=== PATIENT | female | born 1995 | race African-American/Black ===

== ENCOUNTER 2018-07-02 11:53 | Inpatient (IN) ==
[2018-07-02] MEDS ORDERED: Ringers Solution, Lactated 2,000 ML ONE (14:13)
[2018-07-02] MEDS ORDERED: Oxytocin 20 units/ LR 1000 mL 20 UNIT/1,000 ML BAG IVC ONE (14:14)
[2018-07-02] MEDS ORDERED: Naloxone 0.4 MG/ML INJ IVP PRN (14:22)
[2018-07-02] MEDS ORDERED: Metoclopramide 10 MG/2 ML VIAL IVP PRN (14:22)
[2018-07-02] MEDS ORDERED: Famotidine 20 MG/2 ML VIAL IVP PRN (14:22)
[2018-07-02] MEDS ORDERED: Ondansetron 4 MG/2 ML VIAL IVP PRN (14:22)
[2018-07-02] MEDS ORDERED: *HR* Nalbuphine 10 MG/ML AMPUL IVP PRN (14:22)
[2018-07-02] MEDS ORDERED: Oxytocin 20 units/ LR 1000 mL 20 UNIT/1,000 ML BAG IVC SCH ×2 (14:30→20:20)
[2018-07-02] MEDS ORDERED: Ringers Solution, Lactated 1,000 ML IVC SCH (14:30)
[2018-07-02] MEDS ORDERED: *HR* FentaNYL (PF) 100 MCG/2 ML VIAL EP ONE (14:33)
[2018-07-02] MEDS ORDERED: Bupivacaine-MPF 0.25% 10 ML VIAL EP ONE (14:33)
[2018-07-02] MEDS ORDERED: *HR* FentaNYL (PF) 100 MCG/2 ML VIAL ONE (14:36)
[2018-07-02] MEDS ORDERED: Bupivacaine-MPF 0.25% 10 ML VIAL ONE (14:36)
[2018-07-02] MEDS ORDERED: Lidocaine -MPF 1% 5 ML AMPUL ONE (14:36)
[2018-07-02] MEDS ORDERED: Epidural Premix (fent/bupiv) 110 ML EP ONE (14:39)
[2018-07-02 14:43] LABS: Basophils % 0.4 %; Eosinophils % 0.3 %; Hematocrit 39.4 % (35.3-44.9); Hemoglobin 14.2 g/dL (11.5-15.4); Immature Granulocytes % 0.6 % (0-4); Lymphocytes # 1.6 K/mcL (0.6-4.6); Mean Corpuscular Hemoglobin 33.7 pg (28.0-33.3); Mean Corpuscular Volume 93.6 fL (83.0-100.0); Mean Platelet Volume 10.4 fL (9.4-12.4); Monocytes # 0.5 K/mcL (0.0-1.3); Monocytes % 4.8 %; Neutrophils # 8.5 K/mcL (1.6-8.9); Platelet Count 279 K/mcL (140-400); Red Blood Count 4.21 M/mcL (3.82-4.97); Red Cell Distribution Width 12.1 % (11.5-14.5); Segmented Neutrophils % 78.9 %
[2018-07-02] MEDS ORDERED: Epidural Premix (fent/bupiv) 110 ML EP SCH (14:45)
--- NOTE | 2018-07-02 14:45 | OB/GYN History & Physical ---
Date of Encounter: 07/02/18 Time of Encounter: 14:44 Assessment and Plan (1) 38 weeks gestation of Current visit: Yes Status: Acute Patient in active labor. Expectant management. History of Present Illness Chief complaint: labor HPI: Ms. Fenton is a 22 year old female 1 who presents to labor and delivery at 38 weeks and 5 days in labor. On presentation she is 8 cm 100% effaced and 0 station and bulging membranes. After an IV was placed artificial rupture membranes was performed with clear fluid being noted. She is doing well. She is having no complaints. She has no drug allergies. Current medications include vitamins. She has no chronic medical conditions. Surgical history is negative. She has no history of abnormal Pap smears, STDs or pelvic infections. Socially she denies tobacco, alcohol, illicit drug use. Family history is significant for hypertension and a maternal grandfather with prostate cancer. Past Med Surg Social Fam HX - Past Medical History Medical history: non-contributory Psychiatric history: no psych history - Past Surgical History Surgical History: no surgical history - Social History Smoking Status: Former smoker Smokeless Tobacco Status: No Alcohol use: none Drug use: none - Family History Mother Adopted: [place]: Vanessa Fenton Age: 39 Family Member Ethnicity: Non- Living Status: Still Living Hx Family Cardiac Disorders: No Hx Family Respiratory Disorders: No Hx Family Cancer: No Hx Family GI Disorders: No Hx Family Genitourinary Disorders: No Hx Family Endocrine Disorder: No Hx Family Musculoskeletal Disorders: No Hx Family Neuromuscular Disorders: No Hx Family Neurologic Disorders: No Hx Family HEENT Disorders: No Hx Family Autoimmune Disorders: No Hx Family Reproductive Disorders: No Hx Family Psychosocial Disorders: No Hx Family Medical Disorders: No Obstetrical History - Pregnancies : 1 Medications and Allergies Iron Chews 11/05/17 [History] Vit/Iron Fumarate/FA [ Tablet] 1 each PO DAILY #30 tablet 11/05/17 [Rx] Allergy/AdvReac Type Severity Reaction Status Date / Time No Known Allergies Allergy Verified 11/05/17 09:10 Review of System OB All systems PM: reviewed and no additional remarkable complaints except as stat ed Exam - Constitutional Constitutional: well developed, well nourished, no acute distress, average body habitus - HEENT HEENT: EOMI, PERRL - Neck Neck exam: full ROM - Lungs Respiratory exam: CTAB - Cardiovascular Cardiovascular exam: RRR - Abdomen Abdomen: Present: bowel sounds normal, non tender - Extremities Extremities exam: full ROM - Vagina Vagina: Present: normal moisture - Cervix Dilation: 8 Effacement: 100 Station: 0 - Uterus Uterus exam: Present: normal size Results All other labs normal.
--- NOTE | 2018-07-02 15:04 | Anesthesia Evaluation PreOp ---
Date of Encounter: 07/02/18 Time of Encounter: 15:01 - Past History Planned Operation: SARAVANAN Cardiac History: Denies any Significant Hx Pulmonary History: Denies Any Significant HX FOOD PRODUCTION MANAGER History: Denies Any Significant HX Other Medical History: Denies Any Significant HX Anesthesia History: No Prior Anesthetic Complications (never had any procedure requiring GA or NA; denies family h/o GA complications) : Yes Alcohol Use: none Drug use: none Medications and Allergies Iron Chews 11/05/17 [History] Vit/Iron Fumarate/FA [ Tablet] 1 each PO DAILY #30 tablet 11/05/17 [Rx] Allergy/AdvReac Type Severity Reaction Status Date / Time No Known Allergies Allergy Verified 11/05/17 09:10 - Meds/Allergy Pre-op Review Medications Reviewed: Yes Allergies Reviewed: Yes Beta Blockers on Current Med List: No Anesthesia Results - Labs 07/02/18 13:40 Anesthesia Exam O2 Sat Height 1.65 m Weight 65.034 kg NPO (# of Hours): solids > 4hrs Pain Scale: 6 Pain Scale Used: Scott-Zhong (Faces) - HEENT Pupil (Motor): Pupils equal Mallampati: II Teeth: Normal Oral Opening: Greater than 3 - FOOD PRODUCTION MANAGER LOC: Oriented FOOD PRODUCTION MANAGER Motor: Normal RUE, Normal LUE, Normal RLE, Normal LLE, Normal Face FOOD PRODUCTION MANAGER Sensory: Normal: RUE, LUE, RLE, LLE, Face - Cardiac Rhythm: Regular Murmur: None - Pulmonary Breath Sounds: bilateral Clear Respiratory Effort: Symmetrical Anesthesia Assess/Plan ASA Score: 2 Level of consciousness: Cooperative, Oriented, Restless Anesthetic Plan: Epidural (notified by patient's L&D RN that patient is requesting SARAVANAN; after discussing R/B/A to SARAVANAN patient has decided not to receive a SARAVANAN at this time; informed patient that there are no C/I's to SARAVANAN placement and that she is at low risk. Patient educated that she can change her mind at any time.) Autologous Blood: No Monitoring Plan: Standard Monitors Recovery Plan: Other
[2018-07-02 15:28] LABS: Amphetamine Screen,Urine Negative ng/mL (Cutoff=1000); Barbiturate Screen,Urine Negative ng/mL (Cutoff=200); Benzodiazepines Screen,Urine Negative ng/mL (Cutoff=200); Cannabinoid Screen,Urine Positive ng/mL (Cutoff = 50); Cocaine Screen,Urine Negative ng/mL (Cutoff= 300); Opiate Screen,Urine Negative ng/mL (Cutoff=300); Phencyclidine Screen,Urine Negative ng/mL (Cutoff=25)
--- NOTE | 2018-07-02 16:18 | Anesthesia Procedures ---
Addendum entered and electronically signed by Torin Rowe CRNA 07/02/18 22:17: Delivery Date: 07/02/18 Delivery Time: 18:16 Original Note: Date of Encounter: 07/02/18 Time of Encounter: 15:50 Procedures: Anesthesia - Epidural/Spinal Patient ID/Chart reviewed: Yes Patient examined: Yes OB Eval: Gestational age: 38 weeks 5 days OB Eval: : 1 OB Eval: Hx Para: 0 OB Eval: Dilated at (cm): 8 OB Eval: Contractions: Non-stressed pattern Consent Obtained: Yes Supplemental Oxygen: None/Room Air Site Prep: Aseptic Technique, Sterile prep and drape, Povidone-Iodine 1% Patient position: upright Local Anesthetic: Lidocaine 1% Amount of Local Anesthetic used: 3 Touhy Needle Gauge: 18 Touhy Needle Depth (cm): 5 Catheter Depth at Skin (cm): 10 Test Dose (1.5% Lido + Epi): Volume given (mls): 5 Test Dose Result: Negative Loading Dose: 0.25% Marcaine (mls): 5 Loading Dose: Fentanyl (mcg): 100 Loading Dose Administered: Thru Catheter Infusion Med: 0.125% Bupivacaine w/ 2 mcg/ml Fentanyl Infusion Rate (mls/hr): [address]: Tegaderm, Tape Interspace Used: L4-L5 Loss of Resistance (OBINNA): Yes Blood: No CSF: No Paresthesia: No Procedure: successful on 1st attempt; patient tolerated procedure well; VSS Vitals + FHT's: see Sandi RN's electronic records for VS entry
--- NOTE | 2018-07-02 18:32 | OB/GYN Procedure Note ---
Delivery - Delivery Date: 07/02/18 Provider: Odin Mobley Intrapartum events: none Delivery induction: none Delivery augmentation: rupture of membranes Delivery monitor: external FHT, external uterine Anesthesia: epidural Quantitated Blood Loss: 200 - (s) Infant A Delivery Date: 07/02/18 Infant Delivery Time: 18:16 Presentation: vertex Position: JOHNATHAN Route of delivery: Gender: Male Viability: Viable at 1 minute: 8 at 5 mins: 9 Shoulder Dystocia: not encountered Specimens collected: cord blood Placenta: spontaneous Cord: nuchal cord, 3 umbilical vessels - Repair Episiotomy: none Laceration Description: None - Complications Delivery complications: none - Disposition Mom disposition: stable in LDR disposition: stable in LDR - Comments Comments: Jacobprogressed rapidly to complete and pushing and had a spontaneous vaginal delivery of a male over an intact perineum. 's head was in the perineum easily. There was a cord around the neck 1 was easily reduced. The rest of the was delivered with 1 push. Infant cried immediately upon delivery. Cord was clamped cut after 1 minute. Infant was passed to nursing in attendance. Cord blood was obtained. The placenta was then delivered spontaneously and intact. There were no cervical, vaginal, periurethral, or perineal lacerations noted. Patient delivered a male infant weight is pending his mother skin the skin. Apgars are 8 at 1 minute and 9 at 5 minutes. Estimated blood loss is 200 mL
[2018-07-02] MEDS ORDERED: Acetaminophen 325 MG TABLET PO PRN (20:20)
[2018-07-02] MEDS ORDERED: Measles/Mumps/Rubella Vacc 0.5 ML VIAL SQ PRN (20:20)
[2018-07-03 06:19] LABS: Basophils % 0.3 %; Eosinophils % 0.1 %; Hematocrit 33.9 % (35.3-44.9); Immature Granulocytes % 0.7 % (0-4); Lymphocytes # 1.8 K/mcL (0.6-4.6); Lymphocytes % 12.3 %; Mean Corpuscular HGB Conc 36.6 g/dL (31.6-35.5); Mean Corpuscular Volume 92.9 fL (83.0-100.0); Mean Platelet Volume 9.8 fL (9.4-12.4); Monocytes # 0.9 K/mcL (0.0-1.3); Monocytes % 6.2 %; Platelet Count 229 K/mcL (140-400); Red Blood Count 3.65 M/mcL (3.82-4.97); Segmented Neutrophils % 80.4 %
[2018-07-03 06:24] LABS: Hemoglobin 12.4 g/dL (11.5-15.4)
[2018-07-03] MEDS ORDERED: Ibuprofen 600 MG TABLET PO PRN (08:04)
--- NOTE | 2018-07-03 08:14 | Discharge Summary ---
Date of Encounter: 07/03/18 Time of Encounter: 08:10 - Discharge Diagnosis (1) Vaginal delivery Priority: Primary Status: Acute Comments: Continue routine care patient meeting day 1 milestones discharge home today follow up with Dr. Mobley at bedside (2) Breast feeding status of mother Priority: Secondary Status: Acute Comments: support prn - Discharge Medications Prescriptions: Ibuprofen [Motrin] 600 mg PO Q6HR PRN #60 tablet PRN Reason: Pain Breast Pump [BREAST PUMP] 1 each .ROUTE AD #1 each Home Medications: Vit/Iron Fumarate/FA [ Tablet] 1 each PO DAILY #30 tablet 11/05/17 [Rx] Breast Pump [BREAST PUMP] 1 each .ROUTE AD #1 each 07/03/18 [Rx] Ibuprofen [Motrin] 600 mg PO Q6HR PRN #60 tablet 07/03/18 [Rx] Allergies/Adverse Reactions: Allergy/AdvReac Type Severity Reaction Status Date / Time No Known Allergies Allergy Verified 11/05/17 09:10 Data Procedures and tests throughout hospitalization: Laboratory Tests 07/02/18 07/02/18 07/03/18 13:40 13:40 05:59 WBC 10.8 15.0 H RBC 4.21 3.65 L Hgb 14.2 12.4 D Hct 39.4 33.9 L MCV 93.6 92.9 MCH 33.7 H 34.0 H MCHC 36.0 H 36.6 H RDW 12.1 12.0 Plt Count 279 229 MPV 10.4 9.8 Immature Gran % 0.6 0.7 Seg Neutrophils % 78.9 80.4 Lymphocytes % 15.0 12.3 Monocytes % 4.8 6.2 Eosinophils % 0.3 0.1 Basophils % 0.4 0.3 Neutrophils # 8.5 12.0 H Lymphocytes # 1.6 1.8 Monocytes # 0.5 0.9 Eosinophils # 0.0 0.0 Basophils # 0.0 0.0 Urine Opiates Screen Negative Ur Barbiturates Screen Negative Ur Phencyclidine Scrn Negative Ur Amphetamines Screen Negative U Benzodiazepines Scrn Negative Urine Cocaine Screen Negative U Marijuana (THC) Screen Positive H Ur Drug Screen Interp See Below Labs on day of discharge: Labs from last 24 hours 07/03/18 07/02/18 07/02/18 05:59 13:40 13:40 WBC 15.0 H 10.8 RBC 3.65 L 4.21 Hgb 12.4 D 14.2 Hct 33.9 L 39.4 MCV 92.9 93.6 MCH 34.0 H 33.7 H MCHC 36.6 H 36.0 H RDW 12.0 12.1 Plt Count 229 279 MPV 9.8 10.4 Immature Gran % 0.7 0.6 Seg Neutrophils % 80.4 78.9 Lymphocytes % 12.3 15.0 Monocytes % 6.2 4.8 Eosinophils % 0.1 0.3 Basophils % 0.3 0.4 Neutrophils # 12.0 H 8.5 Lymphocytes # 1.8 1.6 Monocytes # 0.9 0.5 Eosinophils # 0.0 0.0 Basophils # 0.0 0.0 Urine Opiates Screen Negative Ur Barbiturates Screen Negative Ur Phencyclidine Scrn Negative Ur Amphetamines Screen Negative U Benzodiazepines Scrn Negative Urine Cocaine Screen Negative U Marijuana (THC) Screen Positive H Ur Drug Screen Interp See Below Date of admission: 07/02/18 11:53 Primary care physician: Margarita Dunbar CNP Consults: 07/02/18 20:20 Consult to Buckle Assembler [CONS] Routine Comment: Vaginal delivery, consult needed Discharging clinician: Malaika Mart Anticipated date of discharge: 07/03/18 - Patient Status Disposition: Home, Self-Care Condition: Good Functional capacity at discharge: independent ambulation - Discharge Instructions Follow Up With: Margarita Dunbar CNP [Primary Care Provider] - Odin Mobley MD [Partnered Physician] - - Diet and Activity Activity: increase activity as tolerated Diet: regular diet Hospital Course Reason for admission: induction of labor Delivery: Episiotomy: none Other procedures: none complications: none Discharge diagnosis: IUP at term delivered [place] baby: male (breast feeding) Time Attestation: Total time spent providing and/or coordinating discharge services: Time Spent: Less than 30 minutes Exam - Constitutional Vitals: Temp Pulse Resp BP Pulse Ox 97.9 F 95 14 103/63 96 07/03/18 08:08 07/03/18 08:08 07/03/18 08:08 07/03/18 08:08 07/03/18 08:08 General appearance IM: A&O X 3, morbidly obese, answers questions appropriately - Respiratory Respiratory exam: Present: CTAB - Cardiovascular Cardiovascular exam IM: Present: RRR, +S1, +S2 - GI/Abdominal GI/Abdominal exam IM: normal bowel sounds - Uterine Tone: Firm Uterus Position: 1 Finger Below Umbilicus, Midline - Extremities Exam Extremities exam IM: Present: full ROM, normal capillary refill, normal inspection - Neurological Exam Neurological exam: alert, oriented X3, reflexes normal
[2018-07-03] MEDS ORDERED: Prenatal Vit/FA 1 EACH TABLET PO SCH (09:00)
[2018-07-03] MEDS ORDERED: Lanolin 7 G OINT...G. TP PRN (10:35)
[2018-07-03 15:57] VITALS: BP 102/77
== END 2018-07-03 22:40 | disposition home or self-care (01) | DRG 560 ==
LOC: 1NENULAB → OBSVTOIN 11:53 → 1NENUOBS 20:49
PROVIDERS: ADMIT Registered Nurse; ATTEND Registered Nurse